=== PATIENT | female | born 1985 | race Caucasian/White ===

== ENCOUNTER 2021-06-06 17:06 | Emergency (ER) | payer OTHER ==
[~2021-06-06] VITALS: Ht 167.6 cm; Wt 59.0 kg
[~2021-06-06 17:06] MED LIST: COLACE 100MG C100 MG PO; FEOSOL325 MG PO; FLAGYL250 MG PO; IBUPROFEN600 MG PO; LEVAQUIN500 MG PO; LORTAB 5-325 M1 EACH PO; MELATONIN5 M2 PO; NAPROSYN500 MG PO; NORCO 5-325 TA1 EACH PO; PRENATAL COMPL1 EACH PO; PRENATAL ONE T1 EACH PO; UNISOM SLEEP AI25 MG PO; ZITHROMAX250 MG PO
[2021-06-06 18:46] LABS: HEMOGLOBIN 11.3 gm/dl (12.3-15.3); RED BLOOD COUNT 4.24 M/UL (4.00-5.10); WHITE BLOOD COUNT 6.3 K/UL (4.5-11.0)
[2021-06-06 19:06] LABS: BUN/CREATININE RATIO 14 (0-10)
[2021-06-06] MEDS ORDERED: PHENERGAN 12.12.5 M1 PO (19:42)
[2021-06-06] MEDS ORDERED: BENTYL 20MG TAB20 MG PO (19:42)
== END 2021-06-06 19:55 | disposition home or self-care (01) ==
LOC: ER1 17:06
PROVIDERS: Physician Assistant
DX: R10.9 Unspecified abdominal pain (principal); R11.2 Nausea with vomiting, unspecified; R19.7 Diarrhea, unspecified; R10.817 Generalized abdominal tenderness
CPT/HCPCS: 36415; 80053; 81001; 83690; 84703; 85025; 96372; 99284; J1885